=== PATIENT | female | born 1990 | race Caucasian/White ===

== ENCOUNTER 2020-03-18 19:22 | Emergency (ER) | payer OTHER, MEDICAID, SELFPAY ==
[2020-03-18 19:37] VITALS: BP 130/83; PULSE 85; RESP 18; TEMP 36.7; O2SAT 98; BMI 41.1
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
[2020-03-18] MEDS: HYDROcodone-acetaminophen 7.5-325 mg Tablet 1 TAB PO (20:12)
[2020-03-18 20:45] VITALS: BP 185/98; PULSE 87; RESP 14; O2SAT 97
[2020-03-18] MEDS: iohexol 300 mg/mL 100 mL Btl IV (21:05)
[2020-03-18 21:44] VITALS: BP 186/106; PULSE 84; RESP 14; O2SAT 96
[2020-03-18] MEDS: orphenadrine 30 mg/mL Inj 2 mL 60 MG IVP (21:53)
[2020-03-18 21:55] VITALS: BP 193/89; PULSE 77; RESP 14; O2SAT 97
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
== END 2020-03-18 22:53 | disposition home or self-care (01) ==
PROVIDERS: Emergency Provider Nurse Practitioner Family; PCP Registered Nurse
DX: S16.1XXA Strain of muscle, fascia and tendon at neck level, initial encounter (principal); V89.2XXA Person injured in unspecified motor-vehicle accident, traffic, initial encounter; Z87.891 Personal history of nicotine dependence
CPT/HCPCS: 12345; 71260; 72125; 73030; 73562; 74177; 96374; 99282; J2360; Q9967

== ENCOUNTER 2023-01-19 15:16 | Outpatient (CLI) | payer BC, MEDICAID, SELFPAY ==
--- NOTE | 2023-01-19 | XR_ITS ---
WS: [id number] XR thoracic spine 2V [id number] REASON FOR EXAM: PAIN FINDINGS: No significant scoliosis. No significant kyphosis. No vertebral body abnormality. Normal intervertebral disc spaces. XR/XR thoracic spine 2V [id number] IMPRESSION: No significant abnormality.
--- NOTE | 2023-01-19 | XR_ITS ---
WS: [id number] XR cervical spine 3V* [id number] REASON FOR EXAM: PAIN FINDINGS: Mild straightening of the normal lordosis of the cervical spine. Normal odontoid. Normal cervical vertebrae. Normal intervertebral disc spaces. Normal facet joint alignment. XR/XR cervical spine 3V* [id number] IMPRESSION: Mild straightening of the normal cervical lordosis without other significant fi nding.
== END 2023-01-19 15:17 | disposition home or self-care (01) ==
LOC: RAD 15:22
PROVIDERS: PCP Registered Nurse; Visit Provider Family Medicine
DX: M54.2 Cervicalgia (principal); M54.6 Pain in thoracic spine
CPT/HCPCS: 72040; 72070

== ENCOUNTER 2023-08-04 15:08 | Outpatient (CLI) | payer BC, MEDICAID, SELFPAY ==
--- NOTE | 2023-08-04 15:12 | CT_ITS ---
WS: [id number] CT HEAD NONCONTRAST HISTORY: CHRONIC MIGRAINE W/AURA W/O STATUS MIGRAINOSUS TECHNIQUE: Contiguous axial imaging performed through the brain in 2.5 mm imaging. Bone and soft tiss ue windows. Sagittal and coronal reformats reviewed. All CT scans at [facility] use at least one of these dose optimization techniques: automated exposure control; mA and/or kV adjustment per pa tient size (includes targeted exams where dose is matched to clinical indication); or iterative recon struction. DLP: 1012.60 mGy.cm COMPARISON: None available. No acute intracranial hemorrhage, midline shift or mass effect. No atrophy or prior infarcts or herniation. Ventricles: Normal size with no hydrocephalus. Paranasal sinuses: As visualized are clear. Mastoid air cells: Well pneumatized. Calvarium and scalp: Skull is intact with no soft tissue edema or swelling. IMPRESSION: Negative head CT.
== END 2023-08-04 15:09 | disposition home or self-care (01) ==
LOC: RAD 15:08
PROVIDERS: PCP Registered Nurse; Visit Provider Family Medicine
DX: G43.E09 Chronic migraine with aura, not intractable, without status migrainosus (principal)
CPT/HCPCS: 70450

== ENCOUNTER 2025-05-16 13:25 | Oncology outpatient (recurring) (ONCR) | payer BC, MEDICAID, SELFPAY ==
[2025-05-08 10:30] VITALS: BP 110/71; PULSE 64; RESP 16; TEMP 36.2; O2SAT 97
[2025-05-08] MEDS: iron sucrose 200 MG in sodium chloride 0.9% (100 ml) 100 ML IV (10:58)
[2025-05-08 12:04] VITALS: BP 113/79; PULSE 68; TEMP 36; O2SAT 99
[2025-05-10] MEDS: iron sucrose 200 MG in sodium chloride 0.9% (100 ml) 100 ML IV (10:36)
[2025-05-10 11:17] VITALS: BP 110/68; PULSE 64
[2025-05-14] MEDS: iron sucrose 200 MG in sodium chloride 0.9% (100 ml) 100 ML IV (13:22)
[2025-05-14 14:12] VITALS: BP 106/69; PULSE 60; RESP 17; TEMP 36.8; O2SAT 97
[2025-05-16] MEDS: iron sucrose 200 MG in sodium chloride 0.9% (100 ml) 100 ML IV (14:04)
[2025-05-16 14:14] VITALS: BP 111/72; PULSE 58; RESP 16; TEMP 36.2; O2SAT 96
[2025-05-16 14:55] VITALS: BP 112/74; PULSE 62; RESP 16; TEMP 36.9; O2SAT 98
== END 2025-05-20 23:59 | disposition home or self-care (01) ==
PROVIDERS: Visit Provider Family Medicine
DX: D50.8 Other iron deficiency anemias (principal); Z79.899 Other long term (current) drug therapy
CPT/HCPCS: 96365; J1756; J7050

== ENCOUNTER 2025-05-28 10:09 | Oncology outpatient (recurring) (ONCR) | payer BC, MEDICAID, SELFPAY ==
[2025-05-28 10:37] VITALS: BP 110/76; PULSE 76; RESP 17; TEMP 36.4; O2SAT 98
[2025-05-28] MEDS: iron sucrose 200 MG in sodium chloride 0.9% (100 ml) 100 ML IV (10:42)
== END 2025-06-19 23:59 | disposition home or self-care (01) ==
LOC: ONCMED 10:10
PROVIDERS: Visit Provider Family Medicine
DX: D50.8 Other iron deficiency anemias (principal); Z79.899 Other long term (current) drug therapy
CPT/HCPCS: 96365; J1756